=== PATIENT | male | born 1995 | race Caucasian/White ===

== ENCOUNTER 2017-05-09 15:21 | Emergency (ER) | payer SELFPAY ==
[~2017-05-09] VITALS: Wt 77.5 kg
[2017-05-09] MEDS ORDERED: BACI28.34 TOP (21:34)
== END 2017-05-09 17:39 | disposition left against medical advice (07) ==
LOC: FTE 15:21
DX: Z53.21 Procedure and treatment not carried out due to patient leaving prior to being seen by health care provider (principal)

== ENCOUNTER 2017-05-09 19:02 | Emergency (ER) | payer MEDICAID ==
[~2017-05-09] VITALS: Ht 160 cm; Wt 79.0 kg
[2017-05-09 19:05] VITALS: Ht 160 cm; Wt 79.0 kg
[2017-05-09] MEDS ORDERED: LIDOCAINE 1% (MDV) 20 ML INJ SC ONE (21:30)
[2017-05-09] MEDS ORDERED: BACI28.34 TOP (21:34)
[2017-05-09 21:54] VITALS: PULSE 63; RESP 18; TEMP 98.4
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
== END 2017-05-09 21:54 | disposition home or self-care (01) ==
LOC: FTE 19:02
DX: S01.312A Laceration without foreign body of left ear, initial encounter (principal); S41.011A Laceration without foreign body of right shoulder, initial encounter; F17.210 Nicotine dependence, cigarettes, uncomplicated; X99.0XXA Assault by sharp glass, initial encounter
CPT/HCPCS: 12011; Z7502; Z7610

== ENCOUNTER 2017-05-13 19:19 | Emergency (ER) | payer MEDICAID ==
[~2017-05-13] VITALS: Ht 167.6 cm; Wt 81.0 kg
[~2017-05-13 19:19] MED LIST: BACI28.34 TOP
[2017-05-13 19:29] VITALS: Ht 167.6 cm; Wt 81.0 kg
[2017-05-13] MEDS ORDERED: BACITRACIN 0.9 GM OINT TOP ONE (22:30)
[2017-05-13] MEDS ORDERED: CEPH-443 PO (22:53)
[2017-05-13] MEDS ORDERED: BACITUD TOP (22:53)
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
== END 2017-05-13 23:32 | disposition left against medical advice (07) ==
LOC: FTE 19:19
DX: Z48.01 Encounter for change or removal of surgical wound dressing (principal); F17.210 Nicotine dependence, cigarettes, uncomplicated
CPT/HCPCS: 99283

== ENCOUNTER 2017-06-20 13:13 | Emergency (ER) | payer SELFPAY ==
[~2017-06-20] VITALS: Ht 152.4 cm; Wt 78.5 kg
[~2017-06-20 13:13] MED LIST changes: +BACITUD TOP; +CEPH-443 PO
[2017-06-20 13:21] VITALS: Ht 152.4 cm; Wt 78.5 kg
[2017-06-20] MEDS ORDERED: IBUPROFEN 600 MG TAB PO ONE (14:30)
--- NOTE | 2017-06-20 15:26 | RADRPT ---
PROCEDURE: XR Lumbar Spine. CLINICAL INDICATION: Low back pain. TECHNIQUE: Three views of the lumbar spine are available for review COMPARISON: None available FINDINGS: No acute fracture or dislocation is seen. The alignment is normal. The normal lumbar lordosis is preserved. No radiopaque foreign body is identified. The vertebral body heights are maintained. The intervertebral disk spaces are maintained. The posterior elements are unremarkable. On the frontal view, there is normal alignment. The paraspinous soft tissues are grossly unremarkable. IMPRESSION: 1. Unremarkable lumbar spine x-ray series. RPTAT: QQ .Ruben Church MD, Date Time Electronically viewed and signed by .Ruben Church MD, on 06/20/2017 15:26 .M/
[2017-06-20] MEDS ORDERED: IBUP-1542 PO (15:40)
[2017-06-20] MEDS ORDERED: LORAZEPAM 1 MG TAB PO ONE (16:00)
[2017-06-20 16:17] VITALS: BP 127/68; PULSE 80; RESP 17; TEMP 98.8
--- NOTE | 2017-06-20 16:23 | ERD ---
ER Documentation Chief Complaint Date/Time DATE: 06/20/17 TIME: 16:18 Chief Complaint anxious, bilateral lower extremity numbness and tingling, back pain HPI 22 year old patient with no significant past medical history presents to the ED complaining of numbness tingling in bilateral lower extremities as well as back pain. Patient reports that this started happening earlier today. Reports that he feels like a burning sensation. Denies any recent traveling. Denies any fever, chills, trauma, injuries. Denies any loss of sensation, loss of range of motion, weakness, saddle anesthesia, urine or bowel incontinence. ROS All systems reviewed and are negative except as per history of present illness. Medications Home Meds Active Scripts Ibuprofen* (Motrin*) 600 Mg Tab, 600 MG PO Q6, #30 TAB Prov:BRENDEN ROGERS PA-C 06/20/17 Cephalexin* (Keflex*) 500 Mg Capsule, 500 MG PO QID for 7 Days, CAP Prov:GRIFFIN GOSS 05/13/17 Bacitracin* (Bacitracin Oint (UD)*) 1 Applic Oint, 1 APPLIC TOP ONCE for 7 Days , PKT APPLY TO Prov:GRIFFIN GOSS 05/13/17 Bacitracin* (Bacitracin Zinc Oint*) 28.35 Gm Oint, 1 APPLIC TOP BID, #1 TUB APPLI TO Prov:NABILA LOCKHART PA-C 05/09/17 Allergies Allergies: Coded Allergies: No Known Allergy (Unverified , 05/09/17) PMhx/Soc Medical and Surgical Hx: pt denies Medical Hx, pt denies Surgical Hx History of Surgery: No Anesthesia Reaction: No Hx Neurological Disorder: No Hx Respiratory Disorders: No Hx Cardiac Disorders: No Hx Psychiatric Problems: No Hx Miscellaneous Medical Probl: No Hx Alcohol Use: Yes (1-2 beers/ week) Hx Substance Use: No Hx Tobacco Use: Yes (1 cig/ day) Smoking Status: Current every day smoker Physical Exam Vitals Vital Signs Date Time Temp Pulse Resp B/P Pulse Ox O2 Delivery O2 Flow Rate FiO2 06/20/17 16:17 98.8 80 17 127/68 99 Room Air 06/20/17 13:21 98.7 81 20 137/68 97 Physical Exam Const: [id number], well-nourished. In no acute distress. Head: Atraumatic, normocephalic Eyes: Normal Conjunctiva without injection. No purulent discharge. ENT: Normal external ear, nose. Moist oropharynx without tonsillar exudates. Non -erythematous pharynx. Uvula midline. No drooling. No trismus. Neck: No cervical midline tenderness. Full range of motion. No meningismus. No cervical lymphadenopathy. No JVD. Resp: Clear to auscultation bilaterally. No wheezing, rhonchi, rales, or crackles. No accessory muscle use. No retractions. Cardio: Regular rate and rhythm. No murmurs, rubs or gallops. Abd: Soft, nontender, non distended. Normal bowel sounds. No palpable masses. No rebound tenderness. No guarding. Negative McBurney's point. Negative psoas sign. Negative obturator sign. Skin: No petechiae or rashes Back: No midline tenderness. No CVA tenderness. Ext: No cyanosis, or edema. Neur: Awake and alert. Normal gait. Normal coordination. Psych: Normal Mood and Affect Results 24 hrs Laboratory Tests Test 06/20/17 14:44 Bedside Glucose 150mg/dL Current Medications Medications (Trade) Dose Ordered Sig/Rigo Route PRN Reason Start Time Stop Time Status Last Admin Dose Admin Ibuprofen (Motrin) 600 mg ONCE ONCE PO 06/20/17 14:30 06/20/17 14:35 DC 06/20/17 14:44 Lorazepam (Ativan) 1 mg ONCE ONCE PO 06/20/17 16:00 06/20/17 16:01 DC 06/20/17 15:48 Procedures/MDM This is a 22-year-old male patient with no significant past medical history presents to the ED complaining of bilateral leg numbness and tingling, back pain. Patient is afebrile nontoxic appearing. Patient has normal vital signs. Accu-check 150. Patient states that he is anxious and stressed. Ativan, ibuprofen was ordered to further treat patient with improvement. Lumbar x-ray shows no evidence of fractures or dislocations. Differentials include anxiety vs. musculoskeletal pain. Patient is ambulating here in the ED without difficulty. Denies saddle anesthesia, numbness or tingling, urine or bowel incontinence, weakness. Low suspicion for cauda equina syndrome, cord compression, nephrolithiasis, aortic aneurysm, aortic dissection , epidural abscess, spinal hematoma, malignancy, pyelonephritis, or other emergent conditions. Low suspicion for acute myocardial infarction, pneumothorax, pneumonia, cardiac tamponade, pulmonary embolism, pleural effusion , AAA, aortic dissection, Boerhaave's syndrome, cardiac dysrhythmias,meningitis , intracranial bleed, seizure, stroke, TIA or other emergent conditions. Patient is neurovascularly intact. Patient's extremity symptoms have stabilized while they have been evaluated in the department and are appropriate for outpatient follow up. No evidence of fractures, dislocations, compartment syndrome, neurologic injury, vascular injury, open joint, open fracture, tendon laceration, septic arthritis, osteomyelitis, DVT, foreign body, or other emergent conditions. This case was discussed with my supervising physician, Dr. Bragg who agreed with the management and discharge plan. Discharge medications: Ibuprofen Follow up with primary care physician in 1-2 days. Instructed patient to return to the ED sooner for any worsening symptoms. Patient's questions were answered. Patient understood and agreed with discharge plan. Patient discharged stable. Departure Diagnosis: Primary Impression: Back pain Back pain location: back pain in unspecified location Chronicity: unspecified Back pain laterality: unspecified Qualified Code: M54.9 - Back pain, unspecified back location, unspecified back pain laterality, unspecified chronicity Additional Impression: Numbness and tingling of lower extremity Condition: Stable Patient Instructions: Your Body's Response to Anxiety, Anxiety Reaction, Back Pain (Acute Or Chronic) Referrals: [facility] Usted se velez hecho un examen mdico de control que le indica que no est en kath condicin que requiera tratamiento urgente en el Departamento de Emergencia. Un estudio ms profundo y el tratamiento de linares condicin pueden esperar sin ningn riesgo hasta que usted sea atendida/o en el consultorio de ilnares mdico o kath cl alejandro. Es responsabilidad suya arreglar kath orly para el seguimiento del soha. MANEJO DE CONDICIONES NO URGENTES EN EL FUTURO 1) Si usted tiene un mdico de atencin primaria: Usted debera llamar a linares mdico de atencin primaria antes de venir al departamento de emergencia. Despus de las horas de consultorio, linares doctor o linares asociado/a est disponible por telfono. El mdico o enfermero de sophia en el servicio telefnico puede asesorarle por mario medio para atender el problema, o soha contrario se puede programar kath orly. 2) Si usted no tiene un mdico de atencin primaria: Llame al mdico o clnica de referencia que aparece abajo pam las horas de consultorio para hacer kath orly para que le vean. CLINICAS: [place] [address] [phone] [facility] [phone] [place] [address] [phone] [place] [address] [phone] [facility]. [place] [address] [phone] [facility]. [phone] [facility] () ted se velez hecho un examen mdico de control que le indica que no est en kath condicin que requiera tratamiento urgente en el Departamento de Emergencia. Un estudio ms profundo y el tratamiento de linares condicin pueden esperar sin ningn riesgo hasta que usted sea atendida/o en el consultorio de linares mdico o kath cl alejandro. Es responsabilidad suya arreglar kath orly para el seguimiento del soha. MANEJO DE CONDICIONES NO URGENTES EN EL FUTURO 1) Si usted tiene un mdico de atencin primaria: Usted debera llamar a linares mdico de atencin primaria antes de venir al departamento de emergencia. Despus de las horas de consultorio, linares doctor o linares asociado/a est disponible por telfono. El mdico o enfermero de sophia en el servicio telefnico puede asesorarle por mario medio para atender el problema, o soha contrario se puede programar kath orly. 2) Si usted no tiene un mdico de atencin primaria: Llame al mdico o condado institucions de referencia que aparece abajo pam las horas de consultorio para hacer kath orly para que le vean. SI USTED NO PUEDE PAGAR PARA DEMARCUS UN MEDICO puede ir a: [facility] [address] [place] [address] [facility] [address] [place] [address] [facility] [address] [place] [address] [facility] [address] [place], [place] [id number] [facility] URGENT CARE/SPECIALTIES Additional Instructions: Linares entumecimiento y hormigueo en ambas piernas no se especifica en srini momento. Por favor, siga con linares mdico de cabecera maana para mayor evaluaci n y tratamiento Avise o llame si linares condicin se empeora antes de la orly. Regresa aqui si peor o no mejor. BRENDEN ROGERS PA-C Jun 20, 2017 16:23
== END 2017-06-20 16:17 | disposition home or self-care (01) ==
LOC: FTE 13:13
DX: M54.9 Dorsalgia, unspecified (principal); F17.210 Nicotine dependence, cigarettes, uncomplicated
CPT/HCPCS: 72100; 82962